=== PATIENT | male | born 1965 | race Native Hawaiian/Other Pacific Islander ===

== ENCOUNTER 2017-04-26 14:50 | Emergency (ER) | payer SELFPAY ==
--- NOTE | 2017-04-26 15:06 | ED Physician Documentation ---
Lower Extremity Injury - HISTORIAN Historian: patient - HPI Chief Complaint: Lower Extremity Injury Onset: days ago (Sundays ) Where: work (16:30) Severity: moderate Context: direct blow (hit knee on console) Associated Symptoms:: tingling, swelling Modifying Factors:: pain on movement - ROS CONST: denies: fever, chills - PAST HX Past History: diabetes Type 2, other (HTN, Hypercholesterolemia, sleep pnea) Allergies/Adverse Reactions: Allergies Allergy/AdvReac Type Severity Reaction Status Date / Time No Known Allergies Allergy Unverified 04/26/17 15:12 Home Medications: Ambulatory Orders Medication Instructions Recorded Aspirin [Adult Low Dose Aspirin EC] 81 mg PO QDAY 04/26/17 Atorvastatin Calcium 40 mg PO QDAY 04/26/17 Glimepiride [Amaryl] 2 mg PO 0704/26/17 Losartan Potassium [Cozaar] 25 mg PO QDAY 04/26/17 [place]-3 Fatty Acids/Fish Oil [Fish 1 each PO QDAY 04/26/[address] 1,000 mg Softgel] Tramadol HCl [Ultram] 50 mg PO Q6 #15 tablet 04/26/17 - SOCIAL HX Smoking History: non-smoker Alcohol Use: occasionally Drug Use: none - FAMILY HX Family History: other (DM) - VITAL SIGNS Vital Signs: Vital Signs Temp Pulse Resp BP Pulse Ox 78 16 118/85 100 04/26/17 17:25 04/26/17 17:25 04/26/17 17:25 04/26/17 17:25 - REVIEWED ASSESSMENTS Nursing Assessment Reviewed: Yes Vitals Reviewed: Yes ED Results Lab/Radiology - Radiology Radiology Impressions: Report Submission Date: Apr 26, 2017 3:51:42 PM CDT Patient Study Name: MONSE ARMENTA Date: Apr 26, 2017 3:24:52 PM CDT Modality Type: CR Gender: M Description: LOWER EXTREMITY : 69 Institution: [facility] Physician: LAYTON CHAMBERLAIN - ER Examination: Plain film knee History: Knee discomfort Findings: 3 views of the knee demonstrates normal cortical margins. No fracture. No dislocation. No joint effusion. No soft tissue irregularity. Impression: No osseous abnormality - Orders Orders: ED Orders Category Date Time Status Knee Immobilizer 1T Care 04/26/17 16:47 Active KNEE 3 VIEWS [RAD] Stat Exams 04/26/17 Completed Ketorolac Tromethamine [Toradol] Med 04/26/17 15:16 Discontinued 60 mg IM NOW ONE Lower Extremities Injury Phy - Physical Exam General Appearance: alert, mild distress Hips: bilateral hip: non-tender, normal inspection, normal range of motion, no evidence of injury Legs: bilateral: non-tender, normal inspection, normal range of motion, no evidence of injury Knees: right: non-tender, normal inspection, normal range of motion, no evidence of injury, left: pain, soft tissue tenderness, swelling, N/A: ecchymosis (none) Neuro/Vascular/Tendon: no vascular compromise, motor nml, sensation nml Resp/CVS: chest non-tender, breath sounds nml, heart sounds nml, no resp. distress, lungs clear, reg. rate & rhythm. No: wheezes, rales, rhonchi Discharge Clincal Impression: Knee pain, acute Qualifiers: Laterality: left Qualified Code(s): M25.562 - Pain in left knee Prescriptions: Tramadol HCl [Ultram] 50 mg PO Q6 #15 tablet Additional Instructions: Wear straight knee immobilizer for the next 5 days. Continue to take Naprosyn ( Aleve) 2 tablets twice a day with food. You may supplement with tramadol as needed every 6 hours for pain. This may cause some drowsiness. Follow-up with your primary care provider for further definitive care. Home Medications: Ambulatory Orders Aspirin [Adult Low Dose Aspirin EC] 81 mg PO QDAY 04/26/17 Atorvastatin Calcium 40 mg PO QDAY 04/26/17 Glimepiride [Amaryl] 2 mg PO 0704/26/17 Losartan Potassium [Cozaar] 25 mg PO QDAY 04/26/17 [place]-3 Fatty Acids/Fish Oil [Fish Oil Dr 1,000 mg Softgel] 1 each PO QDAY 04/26 Tramadol HCl [Ultram] 50 mg PO Q6 #15 tablet 04/26/17 Condition: Stable Disposition: 01 HOME, SELF-CARE Decision to Admit: NO Date of Decison to Admit: 04/26/17 Decision Time: 16:41
[2017-04-26] MEDS: KETOROLAC TROMETHAMINE 60 MG/2 ML VIAL IM ONE (15:42)
--- NOTE | 2017-04-26 15:56 | Diagnostic Imaging Report ---
LAYTON CHAMBERLAIN [facility] [id number] [facility].[address] [id number] Report Submission Date: Apr 26, 2017 3:51:42 PM CDT Patient Study Name: MONSE ARMENTA Date: Apr 26, 2017 3:24:52 PM CDT Modality Type: CR Gender: M Description: LOWER EXTREMITY : 69 Institution: [facility] Physician: LAYTON CHAMBERLAIN Examination: Plain film knee History: Knee discomfort Findings: 3 views of the knee demonstrates normal cortical margins. No fracture. No dislocation. No joint effusion. No soft tissue irregularity. Impression: No osseous abnormality Electronically signed on Apr 26, 2017 3:51:42 PM CDT by: Brayan HARMON
[2017-04-26 22:35] VITALS: BP 118/85
== END 2017-04-26 17:25 | disposition home or self-care (01) ==
LOC: ED 14:50
DX: M25.562 Pain in left knee (principal)
CPT/HCPCS: 73562; J1885; L1830; 96372; 99283